=== PATIENT | male | born 1985 | race Caucasian/White ===

== ENCOUNTER 2017-09-12 01:49 | Emergency (ER) | payer OTHER ==
[~2017-09-12] VITALS: Ht 188 cm; Wt 94.2 kg
[~2017-09-12 01:49] MED LIST: MULTTAB58 PO; OMEG10007 PO; WLL75 PO
[2017-09-12 01:53] VITALS: TEMP 36.3; Ht 188 cm; Wt 94.2 kg
[2017-09-12] MEDS ORDERED: SODIUM CHLORIDE 0.9% 1000ML 1,000 ML IV STA (02:08)
[2017-09-12] MEDS ORDERED: LORAZEPAM 2 MG/ML 1 ML VIAL IV STA (02:08)
--- NOTE | 2017-09-12 02:13 | EMERGENCY ROOM VISIT NOTE ---
History Report prepared by Sierra: Christian Murry Under the Supervision of: Dr. Ranjeet Lyon M.D. First contact with patient: 01:58 Chief Complaint: DETOX REQUEST Stated Complaint: WITHDRAWAL FROM HEROIN,FENTANYL,METHODONE,COCAINE History of Present Illness The patient is a 32 year old male with a history of overdose who presents to the Emergency Room with complaints of persistent drug withdrawal symptoms over the past 2 days. He says that he was a user of Heroin, Fentanyl, Methadone, and Cocaine, but stopped using them 2 days ago. The patient notes that he had been injecting, but does not think he had any needles break off. He states that he does not think his tetanus shot is up to date. He says that he has been going through withdrawal symptoms, including chest pain and abdominal pain. The patient notes that he took Imodium. The patient adds that his car recently broke down so he has been unable to get his Methadone. He says that he has been in contact with the Methadone clinic, and was planning to go tomorrow, but he could not wait anymore. He notes no history of hepatitis. Source of History: patient Onset: Over past 2 days Position: other (global - withdrawal symptoms) Quality: other (going off of Heroin, Fentanyl, Methadone, and Cocaine) Timing: other (persistent) Associated Symptoms: + chest pain, + abdominal pain Note: No other associated symptoms noted. Review of Systems See HPI for pertinent positives & negatives. A total of 10 systems reviewed and were otherwise negative. Past Medical & Surgical Medical Problems: (1) Right hand MRSA removal (2) Sarcoidosis Family History Hypertension Social History Smoking Status: Current Every Day Smoker Alcohol Use: occasionally Marital Status: in relationship Housing Status: lives with significant other Occupation Status: employed Current/Historical Medications No Active Prescriptions or Reported Meds Allergies Coded Allergies: Sulfa Drugs (Verified Allergy, Unknown, UNSURE, 09/12/17) Physical Exam Vital Signs Date Time Temp Pulse Resp B/P (MAP) Pulse Ox O2 Delivery O2 Flow Rate FiO2 09/12/17 04:22 72 18 132/73 100 Room Air 09/12/17 03:20 86 16 134/70 96 Room Air 09/12/17 02:08 76 09/12/17 01:53 36.3 82 18 131/92 97 Room Air Physical Exam GENERAL: Patient is uncomfortable and dehydrated appearing, in moderate distress. HEENT: No acute trauma, normocephalic atraumatic, mucous membranes are dry and cracked, no nasal congestion, no scleral icterus. NECK: No stridor, no adenopathy, no meningismus, trachea is midline. LUNGS: No dyspnea. Clear to auscultation and equal bilaterally. No wheeze, no rhonchi. HEART: Regular rate and rhythm. No murmurs, rubs, gallops appreciated. ABDOMEN: Soft, nontender, bowel sounds positive, no masses appreciated, no peritonitis. BACK: No midline tenderness, no CVA tenderness EXTREMITIES: Normal motion all extremities, no cyanosis, no edema. NEUROLOGIC: Tremulous. Alert and oriented, no focal weakness, cranial nerves grossly intact. SKIN: Piloerection. No rash, no jaundice, no diaphoresis. Medical Decision & Procedures ER Provider Diagnostic Interpretation: X ray results are stated below per my interpretation: Chest: 1 view: No infiltrate, no effusion, normal cardiac border. Laboratory Results 09/12/17 02:14 Red Blood Count 4.60, Mean Corpuscular Volume 90.7, Mean Corpuscular Hemoglobin 31.7, Mean Corpuscular Hemoglobin Concent 35.0, Mean Platelet Volume 8.6, Neutrophils (%) (Auto) 66.9, Lymphocytes (%) (Auto) 22.4, Monocytes (%) (Auto) 10.0, Eosinophils (%) (Auto) 0.1, Basophils (%) (Auto) 0.3, Neutrophils # (Auto ) 5.22, Lymphocytes # (Auto) 1.75, Monocytes # (Auto) 0.78, Eosinophils # (Auto ) 0.01, Basophils # (Auto) 0.02 09/12/17 02:14 Test 09/12/17 02:14 White Blood Count 7.80 K/uL (4.8-10.8) Red Blood Count 4.60 M/uL (4.7-6.1) Hemoglobin 14.6 g/dL (14.0-18.0) Hematocrit 41.7 % (42-52) Mean Corpuscular Volume 90.7 fL (80-100) Mean Corpuscular Hemoglobin 31.7 pg (25-34) Mean Corpuscular Hemoglobin Concent 35.0 g/dl (32-36) Platelet Count 346 K/uL (130-400) Mean Platelet Volume 8.6 fL (7.4-10.4) Neutrophils (%) (Auto) 66.9 % Lymphocytes (%) (Auto) 22.4 % Monocytes (%) (Auto) 10.0 % Eosinophils (%) (Auto) 0.1 % Basophils (%) (Auto) 0.3 % Neutrophils # (Auto) 5.22 K/uL (1.4-6.5) Lymphocytes # (Auto) 1.75 K/uL (1.2-3.4) Monocytes # (Auto) 0.78 K/uL (0.11-0.59) Eosinophils # (Auto) 0.01 K/uL (0-0.5) Basophils # (Auto) 0.02 K/uL (0-0.2) RDW Standard Deviation 43.5 fL (36.4-46.3) RDW Coefficient of Variation 13.0 % (11.5-14.5) Immature Granulocyte % (Auto) 0.3 % Immature Granulocyte # (Auto) 0.02 K/uL (0.00-0.02) Anion Gap 3.0 mmol/L (3-11) Est Creatinine Clear Calc Drug Dose 112.1 ml/min Estimated GFR () 102.8 Estimated GFR (Non- 88.7 BUN/Creatinine Ratio 14.5 (10-20) Calcium Level 9.5 mg/dl (8.5-10.1) Total Bilirubin 0.3 mg/dl (0.2-1) Direct Bilirubin < 0.1 mg/dl (0-0.2) Aspartate Amino Transf (AST/SGOT) 15 U/L (15-37) Alanine Aminotransferase (ALT/SGPT) 34 U/L (12-78) Alkaline Phosphatase 96 U/L (45-117) Total Creatine Kinase 68 U/L (39-308) Troponin I < 0.015 ng/ml (0-0.045) Total Protein 8.1 gm/dl (6.4-8.2) Albumin 3.8 gm/dl (3.4-5.0) Lipase 252 U/L (73-393) Laboratory results as reviewed by me. Medications Administered Medications (Trade) Dose Ordered Sig/Renuka Route Start Time Stop Time Status Last Admin Dose Admin Sodium Chloride 1,000 ml @ 999 mls/hr Q1H1M STAT IV 09/12/17 02:08 09/12/17 03:08 DC 09/12/17 02:18 999 MLS/HR Multivitamins 10 ml/Thiamine HCl 100 mg/Folic Acid 1 mg/Sodium Chloride 1,011.2 ml @ 500 mls/ hr Q2H2M ONCE IV 09/12/17 02:15 09/12/17 04:16 DC 09/12/17 02:29 500 MLS/HR Lorazepam (Ativan Inj) 2 mg NOW STAT IV 09/12/17 02:08 09/12/17 02:09 DC 09/12/17 02:18 2 MG Diphtheria/ Pertussis/Tetanus Vacc (Adacel Inj) 0.5 ml ONCE ONCE IM. 09/12/17 02:15 09/12/17 02:16 DC 09/12/17 02:29 0.5 ML ECG Indication: chest pain Rate (beats per minute): 75 Rhythm: normal sinus Findings: no ectopy, other (early repolarization without STEMI, no reciprocal changes) ED Course 0203: The patient was evaluated in room A9B. A complete history and physical exam was performed. 0335: Reevaluated the patient and his fluids are almost done. He notes that he is still having feelings of withdrawal. I offered information on rehab facilities, he says that he previously had left those early as well. Discussed results and discharge instructions: he verbalized understanding and agreement. The patient is ready for discharge. Medical Decision Differential: Opioid withdrawal, Dehydration, Myopericarditis, ACS, Infection, Electrolyte Abnormality, amongst other pathologies entertained. 32 yr old male arrives from home for evaluation of opioid withdrawal. Recently stopped Methadone abruptly due to car breaking down, in addition to stopping IV heroid/fentanyl and using cocaine. He is clearly withdrawing and moderately dehydrated though has normal vital signs. EKG without stemi nor other acute abnormalities. CXR clear. Labs unremarkable. Given some ativan for symptoms relief though he states this was ineffective. Discussed that there is significant limitation to what ED able to do in his case, especially given need to avoid further narcotics and other addictive substances. Offered to get info on rehab facilities though he states he just left last one because they didn't help him. He is stable and given 2 L NSS (including 1 banana bag). Also given tetanus update as unknown last in setting of IV drug abuse. Medication Reconcilliation Current Medication List: was personally reviewed by me Blood Pressure Screening Patient's blood pressure: Elevated blood pressure Blood pressure disposition: Elevated BP felt to be situational Impression Primary Impression: Acute narcotic withdrawal Additional Impressions: [id number] (DTP) vaccination IV drug abuse Scribe Attestation The scribe's documentation has been prepared under my direction and personally reviewed by me in its entirety. I confirm that the note above accurately reflects all work, treatment, procedures, and medical decision making performed by me. Departure Information Dispostion Home / Self-Care Prescriptions No Active Prescriptions or Reported Meds Referrals No Doctor, Assigned (PCP) Patient Instructions ED Withdrawal Narcotic, My [facility] Problem Qualifiers
[2017-09-12] MEDS ORDERED: MULTI-VITAMIN INFUSION INJ 10 ML, THIAMINE HCL INJ 100 MG, FoLIC ACID INJ 1 MG in SODIU... IV ONE (02:15)
[2017-09-12] MEDS ORDERED: DIPHTHERIA/TETANUS/PERTUSSIS 0.5 ML SYR/VIAL IM. ONE (02:15)
[2017-09-12 02:24] LABS: BASO % 0.3 %; BASO ABS # 0.02 K/uL (0-0.2); EOS % 0.1 %; EOS ABS # 0.01 K/uL (0-0.5); HEMATOCRIT 41.7 % (42-52); HEMOGLOBIN 14.6 g/dL (14.0-18.0); IG# 0.02 K/uL (0.00-0.02); LYMPH % 22.4 %; LYMPH ABS # 1.75 K/uL (1.2-3.4); MEAN CELL VOLUME 90.7 fL (80-100); MEAN CORPUSCULAR HEMOGLOBIN 31.7 pg (25-34); MEAN PLATELET VOLUME 8.6 fL (7.4-10.4); MONO ABS # 0.78 K/uL (0.11-0.59); NEUT % 66.9 %; NEUT ABS # 5.22 K/uL (1.4-6.5); PLATELET COUNT 346 K/uL (130-400); RED CELL DISTRIBUTION WIDTH SD 43.5 fL (36.4-46.3)
[2017-09-12 02:41] LABS: ALBUMIN 3.8 gm/dl (3.4-5.0); ALT/SGPT 34 U/L (12-78); AST/SGOT 15 U/L (15-37); BLOOD UREA NITROGEN 16 mg/dl (7-18); CALCIUM 9.5 mg/dl (8.5-10.1); CARBON DIOXIDE 30 mmol/L (21-32); CREATININE 1.09 mg/dl (0.60-1.40); GLUCOSE 72 mg/dl (70-99); LIPASE 252 U/L (73-393); POTASSIUM 3.7 mmol/L (3.5-5.1); SODIUM 139 mmol/L (136-145)
[2017-09-12 02:47] LABS: ALKALINE PHOSPHATASE 96 U/L (45-117); TOTAL PROTEIN 8.1 gm/dl (6.4-8.2)
[2017-09-12 04:22] VITALS: BP 132/73; PULSE 72; O2SAT 100
--- NOTE | 2017-09-12 06:17 | DIAGNOSTIC IMAGING REPORT ---
CHEST ONE VIEW PORTABLE CLINICAL HISTORY: diffuse chest pains with heroin withdrawal dyspnea COMPARISON STUDY: M 2015 FINDINGS: The bones soft tissues and hemidiaphragms are normal. The cardiomediastinal silhouette is normal. The lungs are clear. The pulmonary vasculature is normal. IMPRESSION: Negative chest. The above report was generated using voice recognition software. It may contain grammatical, syntax or spelling errors. Electronically signed by: Mirza Cuevas M.D. 09/12/2017 6:16 AM Dictated Date/Time: 09/12/2017 6:15 AM
== END 2017-09-12 04:23 | disposition home or self-care (01) ==
LOC: C.EDB 01:52 → C.EDA 04:23
DX: F11.23 Opioid dependence with withdrawal (principal); F14.23 Cocaine dependence with withdrawal; F17.200 Nicotine dependence, unspecified, uncomplicated; Z82.49 Family history of ischemic heart disease and other diseases of the circulatory system; Z23 Encounter for immunization

== ENCOUNTER 2017-09-26 13:57 | Emergency (ER) | payer OTHER ==
[2017-09-26 13:59] VITALS: TEMP 36.2; Ht 188 cm
[2017-09-26] MEDS ORDERED: SODIUM CHLORIDE 0.9% 1000ML 1,000 ML IV STA (14:10)
[2017-09-26] MEDS ORDERED: LORAZEPAM 2 MG/ML 1 ML VIAL IV STA (14:10)
[2017-09-26] MEDS ORDERED: ONDANSETRON INJ 2 MG/ML 2 ML VIAL IV STA (14:14)
[2017-09-26 14:28] LABS: BASO % 0.4 %; BASO ABS # 0.03 K/uL (0-0.2); EOS % 0.9 %; EOS ABS # 0.08 K/uL (0-0.5); HEMATOCRIT 39.2 % (42-52); HEMOGLOBIN 13.6 g/dL (14.0-18.0); IG# 0.02 K/uL (0.00-0.02); LYMPH ABS # 2.82 K/uL (1.2-3.4); MEAN CELL VOLUME 90.7 fL (80-100); MEAN CORPUSCULAR HEMOGLOBIN 31.5 pg (25-34); MEAN CORPUSCULAR HGB CONC 34.7 g/dl (32-36); MEAN PLATELET VOLUME 8.6 fL (7.4-10.4); MONO % 6.8 %; MONO ABS # 0.58 K/uL (0.11-0.59); NEUT % 58.7 %; NEUT ABS # 5.01 K/uL (1.4-6.5); PLATELET COUNT 443 K/uL (130-400); RED CELL DISTRIBUTION WIDTH CV 13.5 % (11.5-14.5); WHITE BLOOD COUNT 8.54 K/uL (4.8-10.8)
[2017-09-26] MEDS ORDERED: OPTIRAY 320 IV PRN (14:30)
[2017-09-26 14:49] LABS: ALBUMIN 4.3 gm/dl (3.4-5.0); ALT/SGPT 48 U/L (12-78); AST/SGOT 19 U/L (15-37); BLOOD UREA NITROGEN 22 mg/dl (7-18); CALCIUM 9.8 mg/dl (8.5-10.1); CARBON DIOXIDE 24 mmol/L (21-32); CREATININE 1.13 mg/dl (0.60-1.40); GLUCOSE 126 mg/dl (70-99); LIPASE 132 U/L (73-393); POTASSIUM 3.7 mmol/L (3.5-5.1); SODIUM 139 mmol/L (136-145)
[2017-09-26 14:51] LABS: ALKALINE PHOSPHATASE 81 U/L (45-117); TOTAL PROTEIN 8.2 gm/dl (6.4-8.2)
[2017-09-26] MEDS ORDERED: LORAZEPAM 2 MG/ML 1 ML VIAL IM STA (14:57)
[2017-09-26] MEDS ORDERED: HALOPERIDOL LACTATE 5 MG/ML 1 ML VIAL IV STA (15:35)
--- NOTE | 2017-09-26 16:12 | DIAGNOSTIC IMAGING REPORT ---
ABDOMEN AND PELVIS CT WITH IV CONTRAST CT DOSE: 1128.71 mGycm HISTORY: severe right lower quadrant pain TECHNIQUE: Multiaxial CT images of the abdomen and pelvis were performed following the use of intravenous contrast. A dose lowering technique was utilized adhering to the principles of ALARA. COMPARISON STUDY: Abdomen and pelvis CTA 1213. FINDINGS: The lung bases are clear. No pneumoperitoneum. No pneumatosis. No fractures within the visualized osseous structures. The liver, spleen, adrenal glands, pancreas, gallbladder, and left kidney are unremarkable. Small area of focal fat within the liver adjacent to the falciform ligament is considered to be a normal variant. No retroperitoneal lymphadenopathy. No bowel wall thickening or obstruction. Normal appendix. There is a 1 mm obstructing stone within the right ureterovesical junction best seen on image 411. This results in mild right hydroureteronephrosis and a delayed right nephrogram. IMPRESSION: 1. A 1 mm obstructing stone within the right ureterovesical junction resulting in mild right hydroureteronephrosis. 2. No bowel wall thickening or obstruction. 3. Normal appendix. Electronically signed by: Dago Lala M.D. 09/26/2017 4:11 PM Dictated Date/Time: 09/26/2017 4:05 PM
[2017-09-26] MEDS ORDERED: KETOROLAC TROMETHAMINE 30 MG/ML VIAL IV STA (16:20)
[2017-09-26] MEDS ORDERED: TAMS0.4C38 PO (20:34)
--- NOTE | 2017-09-26 20:35 | EMERGENCY ROOM VISIT NOTE ---
History First contact with patient: 14:04 Chief Complaint: ABDOMINAL PAIN Stated Complaint: PAIN Nursing Triage Summary: Pt brought in screaming from outside, in wheelchair. c/o sharp, RLQ pain starting 15min ago. associated nausea. denies vomiting, diarrhea. "I don't want pain meds ok!. I have a drug abuse problem ok? I don't want pain meds. they have me in for drug abuse, and I know you think I'm an addict". pt screaming in Triage, "I know you don't take this seriously , but I need this cut out me right now". Security was asked to go to room in case needed History of Present Illness The patient is a 32 year old male who presents to the Emergency Room with complaints of abrupt onset of right lower quadrant pain which started 15 minutes ago with associated nausea but denies any vomiting. The patient denies any chest pain or shortness of breath. The patient has a history of drug abuse. He was incarcerated for a few days since he didn't pay child support and just got out today. He has not had any methadone for 4 days. The patient denies any fever, chills. The patient denies any change in bowel habits. Review of Systems 10 system review was performed and was negative unless stated otherwise history of present illness. Past Medical/Surgical History Medical Problems: (1) Right hand MRSA removal (2) Sarcoidosis Family History Hypertension Social History Smoking Status: Current Every Day Smoker Alcohol Use: occasionally Marital Status: in relationship Housing Status: lives with significant other Occupation Status: employed Current/Historical Medications No Active Prescriptions or Reported Meds Physical Exam Vital Signs Date Time Temp Pulse Resp B/P (MAP) Pulse Ox O2 Delivery O2 Flow Rate FiO2 09/26/17 19:30 71 18 112/86 99 Room Air 09/26/17 19:00 108 18 111/80 98 Room Air 09/26/17 18:30 74 16 115/81 98 Room Air 09/26/17 18:00 73 18 131/86 98 Room Air 09/26/17 17:30 78 16 135/86 97 Room Air 09/26/17 16:30 77 16 144/101 09/26/17 16:15 82 94 09/26/17 15:45 73 95 09/26/17 15:44 139/95 09/26/17 15:44 75 18 139/95 95 Room Air 09/26/17 14:24 106 09/26/17 13:59 36.2 117 20 172/63 99 Room Air Physical Exam GENERAL: 32-year-old white male appears agitated and in acute distress secondary to pain. MENTAL Status: Alert and oriented 3. MOUTH: Mucosa is slightly dry. NECK: Supple, no lymphadenopathy noted. No carotid bruits noted. LUNGS: Clear auscultation without wheezes rales or rhonchi. CARDIAC: Regular rate and rhythm without murmur. Pulses is full and equal throughout. BACK: No CVA tenderness noted. ABDOMEN: Positive bowel sounds all 4 quadrants. Soft, patient has severe tenderness palpation in the right lower quadrant otherwise nontender to palpation without organomegaly or masses. EXTREMITIES: No cyanosis or edema noted. Medical Decision & Procedures ER Provider Diagnostic Interpretation: Patient Name: KAREN COX Unit Number: [id number] Dictated: 09/26/171604 Transcribed: 09/26/171604 Mila Printed Date/Time: [~ rep prt dt]/[~ rep prt tm] [~ rep ct labl] - [~ rep ct ivnm] [facility] [place] [address] Dictated: 09/26/171604 Transcribed: 09/26/171604 Mila Printed Date/Time: [~ rep prt dt]/[~ rep prt tm] [~ rep ct labl] - [~ rep ct ivnm] ABDOMEN AND PELVIS CT WITH IV CONTRAST CT DOSE: 1128.71 mGycm HISTORY: severe right lower quadrant pain TECHNIQUE: Multiaxial CT images of the abdomen and pelvis were performed following the use of intravenous contrast. A dose lowering technique was utilized adhering to the principles of ALARA. COMPARISON STUDY: Abdomen and pelvis CTA 1213. FINDINGS: The lung bases are clear. No pneumoperitoneum. No pneumatosis. No fractures within the visualized osseous structures. The liver, spleen, adrenal glands, pancreas, gallbladder, and left kidney are unremarkable. Small area of focal fat within the liver adjacent to the falciform ligament is considered to be a normal variant. No retroperitoneal lymphadenopathy. No bowel wall thickening or obstruction. Normal appendix. There is a 1 mm obstructing stone within the right ureterovesical junction best seen on image 411. This results in mild right hydroureteronephrosis and a delayed right nephrogram. IMPRESSION: 1. A 1 mm obstructing stone within the right ureterovesical junction resulting in mild right hydroureteronephrosis. 2. No bowel wall thickening or obstruction. 3. Normal appendix. Electronically signed by: Dago Lala M.D. 09/26/2017 4:11 PM Dictated Date/Time: 09/26/2017 4:05 PM The status of this report is Signed. Draft = Not yet reviewed or approved by Radiologist. Signed = Reviewed and approved by Radiologist. <AttendingPhy></AttendingPhy> <FamilyPhy>No Doctor, Assigned</FamilyPhy> < PrimaryPhy>No Doctor, Assigned</PrimaryPhy> <UnitNumber>[id number]</UnitNumber> <VisitNumber>[id number]</VisitNumber> <PatientName>KAREN COX</ PatientName> <DateOfBirth>1985</DateOfBirth> <Location>C[facility]</Location> < ServiceDate>09/26/17</ServiceDate> <MNE>ESINDI</MNE> <OrderingPhy>Suzette Cuevas PA-C</OrderingPhy> <OrderingPhyMNE>f rep ord dr harris</OrderingPhyMNE> < DictatingPhyMNE>f rep dict dr harris</DictatingPhyMNE> <CCListMNE>f rep ct pietere</ CCListMNE> <AdmittingPhyMNE>f pt admit dr harris</AdmittingPhyMNE> <AttendingPhyMNE >f pt attend dr harris</AttendingPhyMNE> <ConsultingPhyMNE>f pt consult dr harris</ConsultingPhyMNE> <FamilyPhyMNE>f pt fam dr harris</FamilyPhyMNE> <OtherPhyMNE>f pt other dr harris</OtherPhyMNE> < PrimaryPhyMNE>f pt prim care dr harris</PrimaryPhyMNE> <ReferringPhyMNE>f pt referring dr harris</ReferringPhyMNE> Laboratory Results 09/26/17 14:14 Red Blood Count 4.32, Mean Corpuscular Volume 90.7, Mean Corpuscular Hemoglobin 31.5, Mean Corpuscular Hemoglobin Concent 34.7, Mean Platelet Volume 8.6, Neutrophils (%) (Auto) 58.7, Lymphocytes (%) (Auto) 33.0, Monocytes (%) (Auto) 6.8, Eosinophils (%) (Auto) 0.9, Basophils (%) (Auto) 0.4, Neutrophils # (Auto) 5.01, Lymphocytes # (Auto) 2.82, Monocytes # (Auto) 0.58, Eosinophils # (Auto) 0.08, Basophils # (Auto) 0.03 09/26/17 14:14 Test 09/26/17 14:14 White Blood Count 8.54 K/uL (4.8-10.8) Red Blood Count 4.32 M/uL (4.7-6.1) Hemoglobin 13.6 g/dL (14.0-18.0) Hematocrit 39.2 % (42-52) Mean Corpuscular Volume 90.7 fL (80-100) Mean Corpuscular Hemoglobin 31.5 pg (25-34) Mean Corpuscular Hemoglobin Concent 34.7 g/dl (32-36) Platelet Count 443 K/uL (130-400) Mean Platelet Volume 8.6 fL (7.4-10.4) Neutrophils (%) (Auto) 58.7 % Lymphocytes (%) (Auto) 33.0 % Monocytes (%) (Auto) 6.8 % Eosinophils (%) (Auto) 0.9 % Basophils (%) (Auto) 0.4 % Neutrophils # (Auto) 5.01 K/uL (1.4-6.5) Lymphocytes # (Auto) 2.82 K/uL (1.2-3.4) Monocytes # (Auto) 0.58 K/uL (0.11-0.59) Eosinophils # (Auto) 0.08 K/uL (0-0.5) Basophils # (Auto) 0.03 K/uL (0-0.2) RDW Standard Deviation 45.0 fL (36.4-46.3) RDW Coefficient of Variation 13.5 % (11.5-14.5) Immature Granulocyte % (Auto) 0.2 % Immature Granulocyte # (Auto) 0.02 K/uL (0.00-0.02) Anion Gap 8.0 mmol/L (3-11) Estimated GFR () 98.4 Estimated GFR (Non- 84.9 BUN/Creatinine Ratio 19.7 (10-20) Calcium Level 9.8 mg/dl (8.5-10.1) Total Bilirubin 0.6 mg/dl (0.2-1) Direct Bilirubin 0.2 mg/dl (0-0.2) Aspartate Amino Transf (AST/SGOT) 19 U/L (15-37) Alanine Aminotransferase (ALT/SGPT) 48 U/L (12-78) Alkaline Phosphatase 81 U/L (45-117) Total Protein 8.2 gm/dl (6.4-8.2) Albumin 4.3 gm/dl (3.4-5.0) Lipase 132 U/L (73-393) Medications Administered Medications (Trade) Dose Ordered Sig/Renuka Route Start Time Stop Time Status Last Admin Dose Admin Sodium Chloride 1,000 ml @ 999 mls/hr Q1H1M STAT IV 09/26/17 14:10 09/26/17 15:10 DC 09/26/17 14:21 999 MLS/HR Lorazepam (Ativan Inj) 1 mg NOW STAT IV 09/26/17 14:10 09/26/17 14:12 DC 09/26/17 14:21 1 MG Ondansetron HCl (Zofran Inj) 4 mg NOW STAT IV 09/26/17 14:14 09/26/17 14:15 DC 09/26/17 14:21 4 MG Lorazepam (Ativan Inj) 1 mg NOW STAT IM 09/26/17 14:57 09/26/17 14:58 DC 09/26/17 15:02 1 MG Haloperidol Lactate (Haldol Inj) 5 mg NOW STAT IV 09/26/17 15:35 09/26/17 15:37 DC 09/26/17 15:46 5 MG Ketorolac Tromethamine (Toradol Inj) 30 mg NOW STAT IV 09/26/17 16:20 09/26/17 16:21 DC 09/26/17 16:24 30 MG ED Course The patient was evaluated. IV access was obtained. The patient's EMR medication list were reviewed. The patient was just seen here on September 12 for both chest and abdominal pain and at that point did not have his methadone for several days. The patient was given 1 L normal saline wide-open. He was also given Zofran 4 mg IV push for nausea. He was given Ativan 1 mg IV. He did not want anything for pain. CBC and differential, renal profile, LFTs and lipase levels were ordered. Urinalysis was ordered. The patient became very agitated and broke out his IV. Security was called. The patient urinated on the floor. He was not cooperative. The patient was given an additional 1 mg of Ativan IM. The patient was still agitated. We attempted to get the CT but he was uncooperative. The patient was therefore chemically restrained with Haldol [address] of the abdomen pelvis was ordered and interpreted by the radiologist as above with a 1 mm obstructing calculus at the right UV junction. Labs are reviewed and were unremarkable.. The patient was reevaluated at 8:30 PM when he was awake, alert and oriented. He stated he was feeling much better. His girlfriend was at his side. The patient was informed of the CT findings. He was discharged home in stable condition. Medical Decision Differential diagnosis include acute appendicitis, ureteral calculi, bowel obstruction I felt that some of his symptoms were possibly secondary to his narcotic withdrawal I felt a CT was warranted due to his complaint of a specific area of pain. [place] Drug Monitoring Program Search Results: patient reviewed within database Medication Reconcilliation Current Medication List: was personally reviewed by me Blood Pressure Screening Patient's blood pressure: Normal blood pressure Impression Primary Impression: Ureteral calculus, right Departure Information Dispostion Home / Self-Care Condition GOOD Prescriptions Tamsulosin Hcl (FLOMAX) 0.4 Mg Cap 0.4 MG PO DAILY for 7 Days, #7 CAP Prov: Suzette Cuevas PA-C 09/26/17 Referrals No Doctor, Assigned (PCP) Forms Call Back Authorization, HOME CARE DOCUMENTATION FORM, IMPORTANT VISIT INFORMATION Patient Instructions Kidney Stones - [facility], [facility] Additional Instructions Ibuprofen 600 mg every 6 hours with food for pain. Take Flomax daily as prescribed. Strain all urine. Push fluids. If symptoms persist or worsen, return to ER. Recommend calling the methadone clinic tomorrow for an appointment as soon as possible.
[2017-09-26 20:46] VITALS: BP 126/79; PULSE 90; O2SAT 99
== END 2017-09-26 20:46 | disposition home or self-care (01) ==
LOC: C.EDB 13:58 → C.EDC 20:46
DX: N13.2 Hydronephrosis with renal and ureteral calculous obstruction (principal); F17.210 Nicotine dependence, cigarettes, uncomplicated; Z82.49 Family history of ischemic heart disease and other diseases of the circulatory system

== ENCOUNTER 2017-11-05 14:35 | Emergency (ER) | payer OTHER ==
[~2017-11-05] VITALS: Ht 188 cm; Wt 96.0 kg
[2017-11-05 14:35] VITALS: TEMP 37; Ht 188 cm; Wt 96.0 kg
[2017-11-05] MEDS ORDERED: IBUPROFEN 600 MG TAB PO STA (14:47)
[2017-11-05 15:31] VITALS: BP 150/76; PULSE 75; O2SAT 98
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
== END 2017-11-05 15:31 | disposition home or self-care (01) ==
LOC: EDBD 14:35 → C.EDB 14:36
DX: R51 Headache (principal); V89.2XXA Person injured in unspecified motor-vehicle accident, traffic, initial encounter; R40.2412 Glasgow coma scale score 13-15, at arrival to emergency department; R03.0 Elevated blood-pressure reading, without diagnosis of hypertension; F17.200 Nicotine dependence, unspecified, uncomplicated; Z88.2 Allergy status to sulfonamides; Z82.49 Family history of ischemic heart disease and other diseases of the circulatory system

== ENCOUNTER 2017-11-18 01:36 | Emergency (ER) | payer SELFPAY ==
[~2017-11-18] VITALS: Ht 188 cm; Wt 96.8 kg
[2017-11-18 01:36] VITALS: TEMP 36.3; O2SAT 99; Ht 188 cm; Wt 96.8 kg
[2017-11-18] MEDS ORDERED: NALOXONE HCL 0.4 MG/1 ML VIAL/CARP ONE (01:40)
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
[2017-11-18] MEDS ORDERED: NURSING VERBAL MED ORDER ONE (02:15)
[2017-11-18] MEDS ORDERED: NALOXONE HCL INJ 1 MG/ML 2ML SYR IV SCH (02:30)
[2017-11-18 03:04] VITALS: BP 170/108; PULSE 119; O2SAT 99
== END 2017-11-18 03:04 | disposition home or self-care (01) ==
LOC: EDBD 01:36 → C.EDB 01:37
DX: T40.1X1A Poisoning by heroin, accidental (unintentional), initial encounter (principal); F17.200 Nicotine dependence, unspecified, uncomplicated; D86.9 Sarcoidosis, unspecified; Z86.14 Personal history of Methicillin resistant Staphylococcus aureus infection; Z88.2 Allergy status to sulfonamides; Z82.49 Family history of ischemic heart disease and other diseases of the circulatory system